=== PATIENT | female | born 1975 | race Two or more races ===

== ENCOUNTER → 2024-07-25 | Outpatient (CLI) | payer MEDICAID, SELFPAY ==
--- NOTE | 2024-07-25 16:00 | XR_ITS ---
Examination: Breast ultrasound, unilateral, left complete Date and time of exam: July 25, 2024 1619 hours INDICATIONS: Left breast pain beginning 3 weeks ago Technique: Real-time valverde scale ultrasonographic imaging performed left breast including all 4 quadrants as well as nipple retroareolar and axillary region. Findings: No cystic or solid mass IMPRESSION: BI-RADS Category 1: Negative study
== END | disposition home or self-care (01) ==
LOC: CDIM 16:01
PROVIDERS: Referring Provider Internal Medicine; Visit Provider Internal Medicine
DX: N64.4 Mastodynia (principal)
CPT/HCPCS: 76641

== ENCOUNTER 2025-03-12 09:01 | Emergency (ER) | payer MEDICAID, SELFPAY ==
[2025-03-12 09:20] VITALS: BP 119/78; PULSE 57; RESP 16; TEMP 36.8; O2SAT 99; BMI 25.4
--- NOTE | 2025-03-12 09:27 | PD.EDEYE ---
ED Eye Problem RME/HPI General Chief complaint: Extremity Injury, Upper Stated complaint: R) EYE PAIN/REDNESS (05/30) Time Seen by Provider: 03/12/25 09:20 Arrival date/time: 03/12/25 09:01 This is a 49-year-old female that comes into the emergency room with complaints of right eye redness. Patient states that she had like a pimple on her upper right eyelid and today does not really see it and looks like a red dot this morning. Patient denies any eye trauma. Patient does state that her eye has pain but states that her vision is unaffected. She denies any other complaints Related Data Previous Rx's ?Medication ?Instructions ?Recorded hydrocodone 7.5 mg-acetaminophen 1 tab PO Q6H PRN pain #30 tabs 08/30/18 325 mg tablet (Linn) azithromycin 500 mg tablet See Rx Instructions PO .COMPLEX #6 05/16/20 tabs erythromycin 5 mg/gram (0.5 %) eye 0.5 inch ophthalmic (eye) BID #3.5 03/12/25 ointment grams Allergies Allergy/AdvReac Type Severity Reaction Status Date / Time No Known Allergies Allergy Verified 03/12/25 09:07 Review of Systems Review of Systems Systems Reviewed: All systems reviewed, normal except as documented Past Medical History Past Medical History NEUROLOGIC: Negative Neurological Disorders or Seizures CARDIAC: Negative Cardiac Disorders or Congestive Heart Failure RESPIRATORY: Negative Chronic Obstructive Pulmonary Disease (COPD) GASTROINTESTINAL: Positive Gastrointestinal Disorders (OCCASSIONAL CONSTIPATION); Negative Hepatitis or Colorectal Cancer GENITOURINARY: Negative Genitourinary Disorders or Renal Disease REPRODUCTIVE: Positive Previous Pregnancies (X4); Negative Breast Cancer MUSCULOSKELETAL: Negative Musculoskeletal Disorders, Bone Cancer or Carpal Tunnel Syndrome ENDOCRINE: Negative Endocrine Disorders, Diabetes Mellitus Type 1 or Diabetes Mellitus Type 2 HEMATOLOGIC: Negative Blood Disorders OTHER HISTORY: Negative Autoimmune Disease, Falls, Blood Transfusions, Blood Transfusion Reaction, Anesthesia Reactions, MRSA, Chicken Pox, Measles, Mumps, Cancer, Breast Cancer, Cervical Cancer, Colorectal Cancer, Lung Cancer or Ovarian Cancer Family History FAMILY HISTORY: Negative Family Psychiatric Problems, Family Respiratory Disorders, Family Cardiac Disorders, Family Gastrointestinal Problems, Family Cancer, Family Surgery or Family Anesthesia Reaction Surgical History SURGICAL: Negative Cardiac Surgery, Endocrine Surgery, Ear Surgery, Abdominal Surgery, Nephrectomy, Joint Replacement, Amputation, Open Reduction Internal Fixation, Arthroscopy, Lumpectomy, Tubal Ligation or Section Social History SMOKING STATUS: Never smoker Travel History EBOLA RISK: No ED Exam Narrative Physical exam: VITAL SIGNS: Reviewed. GENERAL APPEARANCE: Alert and interactive, follows commands, no acute distress HEAD AND FACE: Non-traumatic. ENT: PERRL, conjuctiva seems erythemic. Mucous membrane moist. NECK: Supple, nontender, no nuchal rigidity. CHEST: No tenderness, no crepitus, no paradoxical movement, no retractions. LUNGS: breathing even and unlabored HEART: Regular rate, cap refill less than 2 seconds ABDOMEN: Soft, nondistended, no guarding, nontender, no rebound, no masses, NEUROLOGICAL: Gross motor function intact sensory function intact, Appropriate for age. MUSCULOSKELETAL: low back nontender, full range of motion. EXTREMITIES: No redness no swelling no skin breakdown on bilateral foot and leg. Distal neurovascular status intact bilateral foot SKIN: Color pink, dry, no rash, no lacerations, no abrasions, no contusions. Course Quality Measures none Orders Category Date Time Status Chew Lamp to Bedside X1 Care 03/12/25 09:27 Completed Fluorescein Sodium [Bio-Kelsea] Med 03/12/25 09:27 Discontinued 1 mg RIGHT EYE X1 ONE TETRACAINE Op Radha 0.5% [Pontocaine Op Radha 0.5%] Med 03/12/25 09:27 Discontinued 1 drop RIGHT EYE X1 ONE Vital Signs Vital signs: Vital Signs Temperature 98.3 F 03/12/25 09:20 Pulse Rate 57 L 03/12/25 09:20 Respiratory Rate 16 03/12/25 09:20 Blood Pressure 119/78 03/12/25 09:20 Pulse Oximetry (%) 99 03/12/25 09:20 Oxygen Delivery Method Room Air 03/12/25 09:20 PROCEDURES: Chew Lamp Exam Right eye: Flourescein uptake:: No Chew Lamp Findings: Other (Conjunctive just appears irritated no corneal abrasions appreciated no hordeolum appreciated) Eye MDM Narrative MDM Narrative:: I spoke to patient at length. Patient does not appear to have any type of stye/hordeolum to her right upper eyelid it is possible that it could have drained on its own. Patient states she really did not see it this morning I flipped her eye lid on the top eye and I did not see any bumps. Patient thinks it is gone now. It is possible that patient had a hordeolum to her upper eyelid. I did use the Chew lamp and used fluorescein and tetracaine and I did not appreciate any corneal abrasions conjunctivojust appears irritated and erythemic. Will treat for conjunctivitis patient is left eye also seems a little erythemic but no complaints in the left eye. I did explain to patient that this could also be allergies. I will treat patient with erythromycin ointment and patient should make an appoint with her primary doctor and eye doctor tomorrow come back to the emergency room if symptoms change or worsen patient agreeable to exercises understanding and feels comfortable plan of care. Dragon dictation: Although this document has been carefully reviewed, there may still be some phonetic and other typographical errors. These errors are purely grammatical due to imperfections in the software program and should not be construed in any way to compromise the substance of the patient's medical care during this visit. Patient data External records reviewed:: [facility] previous records Clinical information provided by:: patient Social determinants that could affect healthcare access:: none Patient has the following chronic illnesses:: none How is presenting disease/condition affected by chronic disease/condition?: no chronic disease Evaluation data The following diagnostics were reviewed and interpreted by me:: other (specify) (none) Lab and/or radiology exams considered but not ordered:: none Interpretation Summary: see note Medications / Prescriptions Medications or Prescriptions considered but not ordered:: none Medication administrations:: Medication Administration History Discontinued Medications Fluorescein Sodium (Fluorescein Sod 1 Mg Strp) 1 mg RIGHT EYE X1 ONE Stop: 03/12/25 09:28 Last Admin: 03/12/25 10:22 Dose: 1 mg Documented By: LORENZA Comments: used by provider Tetracaine HCl (Tetracaine Pf Op Radha 0.5% 4 Ml Drpette) 1 drop RIGHT EYE X1 ONE Stop: 03/12/25 09:28 Last Admin: 03/12/25 10:22 Dose: 1 drop Documented By: LORENZA Comments: administered by provider see mar Consultations Consultation(s) initiated? (list below): No Diagnosis Eye Problem Differential Diagnosis: corneal abrasion, conjunctivitis, subconjunctival hemorrhage and other (stye ) Most likely diagnosis given after review of the tests above:: see note Admission Indicated Admission indicated?: not indicated Admission Request Was there a request for admission?: No Disposition Plan Disposition Plan: Discharge Discharge Attestation Discharge Attestation: The patient and all family members were given an opportunity to ask questions and understood the discharge instructions. Discharge instructions specifically effects, indications for sooner follow up or return to the emergency department, and the expected course of current diagnosis. Patient condition: Stable Discharge Plan Plan Patient Disposition: HOME (Self Care) Patient condition on transfer: Stable Prescriptions/Referrals Prescriptions/Med Rec: New erythromycin 5 mg/gram (0.5 %) ointment 0.5 inch ophthalmic (eye) BID Qty: 3.5 0RF No Action hydrocodone-acetaminophen [Linn] 7.5-325 mg tablet 1 tab PO Q6H MDD 3 PRN (Reason: pain) Qty: 30 0RF azithromycin 500 mg tablet See Rx Instructions .ROUTE .COMPLEX Qty: 6 0RF Rx Instructions: take 500 mg today (day 1), then 250 mg for 4 days (days 2-5) Referrals: Sami Ledesma MD [Primary Care Provider] - In 1 week Problem List Clinical Impression: Acute bacterial conjunctivitis Patient/Caregiver Discharge Instructions Discharge Activity: activity as tolerated Education Materials: ED Conjunctivitis, Nonspecific Additional Instructions: Jonn un graciela con dsouza medico de cabecera en las proximas 24-48 horas. Regrese a la vesna de emergencias si hay evidencia de que los signos o sintomas empeoran. Print Language: [place] Stand Alone Forms: Yudy Award Info., Patient Portal Info Letter CODEY/RUTH Supervising Physician KIANNA Supervising Physician: [email or web address]
[2025-03-12] MEDS: TETRACAINE PF OP SOL 0.5% 4 ML DRPETTE 1 DROP RIGHT EYE (10:22)
[2025-03-12] MEDS: FLUORESCEIN SOD 1 MG STRP RIGHT EYE (10:22)
== END 2025-03-12 11:44 | disposition home or self-care (01) ==
PROVIDERS: Emergency Provider Emergency Medicine; PCP Internal Medicine
DX: H10.31 Unspecified acute conjunctivitis, right eye (principal)
CPT/HCPCS: 99281